=== PATIENT | male | born 1980 | race Caucasian/White ===

== ENCOUNTER 2018-12-03 22:21 | Emergency (ER) | payer MEDICAID, MEDICARE ==
[~2018-12-03] VITALS: Ht 160 cm; Wt 59.1 kg
[~2018-12-03 22:21] MED LIST: BENZ2TAB10 PO; QUET200T PO; RISP2 PO
[2018-12-03 22:25] VITALS: BP 140/85
[2018-12-03 23:09] LABS: AMPHET/METH SCREEN,URINE POSITIVE (NEGATIVE); BARBITURATE SCREEN, URINE NEGATIVE (NEGATIVE); BENZODIAZEPINES SCREEN,URINE NEGATIVE (NEGATIVE); CANNABINOID SCREEN,URINE NEGATIVE (NEGATIVE); COCAINE SCREEN,URINE NEGATIVE (NEGATIVE); METHADONE SCREEN, URINE NEGATIVE (NEGATIVE); OPIATE SCREEN,URINE NEGATIVE (NEGATIVE)
[2018-12-03 23:10] LABS: PHENCYCLIDINE SCREEN,URINE NEGATIVE (NEGATIVE)
== END 2018-12-04 01:13 | disposition left against medical advice (07) ==
LOC: EMS 22:21
DX: R45.851 Suicidal ideations (principal); R21 Rash and other nonspecific skin eruption; F20.9 Schizophrenia, unspecified; F17.210 Nicotine dependence, cigarettes, uncomplicated; F19.90 Other psychoactive substance use, unspecified, uncomplicated; Z53.21 Procedure and treatment not carried out due to patient leaving prior to being seen by health care provider

== ENCOUNTER 2018-12-25 09:31 | Inpatient (IN) | payer MEDICARE ==
[2018-12-25] MEDS ORDERED: LORazepam 2 MG/ML VIAL IM ONE (10:00)
[2018-12-25] MEDS ORDERED: ZOLPIDEM TARTRATE 10 MG TABLET PO PRN (10:00)
[2018-12-25] MEDS ORDERED: HALOPERIDOL 5 MG TABLET PO PRN (10:00)
[2018-12-25] MEDS ORDERED: DiphenhydrAMINE HCL 50 MG/ML VIAL IM ONE (10:00)
[2018-12-25] MEDS ORDERED: HALOPERIDOL LACTATE 5 MG/ML VIAL IM ONE ×2 (10:00→10:15)
[2018-12-25 11:15] VITALS: BP 116/86
[2018-12-25 12:09] LABS: GLUCOMETER DEV NAME(LOC) BV2X.; GLUCOSE,POINT OF CARE 97 MG/DL (70-110)
[2018-12-25] MEDS ORDERED: MAGNESIUM HYDROXIDE SUSPENSION 30 ML UDCUP PO PRN (12:30)
[2018-12-25] MEDS ORDERED: PETROLATUM,WHITE 28 GM JELLY TP PRN (12:30)
[2018-12-25] MEDS ORDERED: IBUPROFEN 400 MG TABLET PO PRN (12:30)
[2018-12-25] MEDS ORDERED: DOCUSATE SODIUM 100 MG CAPSULE PO PRN (12:30)
[2018-12-25] MEDS ORDERED: ACETAMINOPHEN 325 MG TABLET PO PRN (12:30)
[2018-12-25] MEDS ORDERED: LOPERAMIDE HCL 2 MG CAPSULE PO PRN (12:30)
[2018-12-25] MEDS ORDERED: ONDANSETRON HCL 4 MG TABLET PO PRN (12:30)
[2018-12-25] MEDS ORDERED: ALBUTEROL SULFATE HFA 90 MCG/PUFF 8 GM INHALER IH PRN (12:30)
[2018-12-25] MEDS ORDERED: GuaiFENesin/D-METHORPHAN [SUGAR-FREE] 200-20MG/10 ML SYRUP UDCUP PO PRN (12:30)
[2018-12-25] MEDS ORDERED: NICOTINE 14 MG/24 HOUR PATCH TD PRN (12:30)
[2018-12-25] MEDS ORDERED: MAG HYDROX/AL HYDROX/SIMETH ES 30 ML SUSPENSION UDCUP PO PRN (12:30)
[2018-12-26] MEDS: QUEtiapine FUMARATE 200 MG TABLET PO SCH ×2 (10:38→20:19)
[2018-12-27 08:17] VITALS: BP 143/96
[2018-12-27] MEDS: QUEtiapine FUMARATE 200 MG TABLET PO SCH ×2 (08:33→20:20)
[2018-12-27] MEDS: LORazepam 2 MG TABLET PO PRN ×2 (09:10→15:56)
[2018-12-27 18:12] VITALS: BP 151/100
[2018-12-27] MEDS ORDERED: CloNIDine HCL 0.1 MG TABLET PO ONE (18:15)
[2018-12-27 19:00] VITALS: BP 151/100
[2018-12-28 01:27] VITALS: BP 140/78
[2018-12-28] MEDS: QUEtiapine FUMARATE 200 MG TABLET PO SCH ×3 (08:47→20:16)
[2018-12-28 16:00] VITALS: BP 193/108
[2018-12-28] MEDS: CloNIDine HCL 0.1 MG TABLET PO PRN (16:00)
[2018-12-28] MEDS: LORazepam 2 MG TABLET PO PRN (16:16)
[2018-12-28 19:50] VITALS: BP 168/101
[2018-12-28] MEDS ORDERED: AmLODIPine BESYLATE 5 MG TABLET PO ONE (20:30)
[2018-12-29 04:47] VITALS: BP 171/108
[2018-12-29] MEDS: LORazepam 2 MG TABLET PO PRN (04:55)
[2018-12-29] MEDS: CloNIDine HCL 0.1 MG TABLET PO PRN (04:55)
[2018-12-29 07:20] VITALS: BP 119/66
[2018-12-29] MEDS: AmLODIPine BESYLATE 5 MG TABLET PO SCH (09:38)
[2018-12-29] MEDS: QUEtiapine FUMARATE 200 MG TABLET PO SCH ×2 (09:38→20:25)
[2018-12-29 09:51] VITALS: BP 123/82
[2018-12-29 19:48] VITALS: BP 146/87
[2018-12-30 00:18] VITALS: BP 140/89
[2018-12-30 08:12] VITALS: BP 163/99
[2018-12-30] MEDS: QUEtiapine FUMARATE 200 MG TABLET PO SCH ×2 (08:55→20:18)
[2018-12-30] MEDS: AmLODIPine BESYLATE 5 MG TABLET PO SCH (08:55)
[2018-12-30 10:30] VITALS: BP 127/77
[2018-12-30 16:14] VITALS: BP 134/76
[2018-12-31 00:10] VITALS: BP 129/81
[2018-12-31 08:19] VITALS: BP 158/110
[2018-12-31] MEDS: AmLODIPine BESYLATE 5 MG TABLET PO SCH (08:21)
[2018-12-31] MEDS: QUEtiapine FUMARATE 200 MG TABLET PO SCH ×2 (08:21→21:08)
[2018-12-31 10:00] VITALS: BP 123/63
[2018-12-31 16:09] VITALS: BP 136/87
[2019-01-01 07:00] VITALS: BP 140/78
[2019-01-01] MEDS: AmLODIPine BESYLATE 5 MG TABLET PO SCH (08:26)
[2019-01-01] MEDS: QUEtiapine FUMARATE 200 MG TABLET PO SCH ×2 (08:26→21:00)
[2019-01-01 08:59] VITALS: BP 138/90
[2019-01-01 17:34] VITALS: BP 136/78
[2019-01-02 04:57] VITALS: BP 142/96
[2019-01-02 08:12] VITALS: BP 130/64
[2019-01-02] MEDS: QUEtiapine FUMARATE 200 MG TABLET PO SCH ×2 (08:55→20:50)
[2019-01-02] MEDS: AmLODIPine BESYLATE 5 MG TABLET PO SCH (08:55)
[2019-01-03 03:23] VITALS: BP 131/80
[2019-01-03] MEDS: QUEtiapine FUMARATE 200 MG TABLET PO SCH ×2 (08:53→21:14)
[2019-01-03] MEDS: AmLODIPine BESYLATE 5 MG TABLET PO SCH (08:53)
[2019-01-03] MEDS: LORazepam 2 MG TABLET PO PRN (10:14)
[2019-01-04 00:21] VITALS: BP 132/78
[2019-01-04 08:19] VITALS: BP 135/78
[2019-01-04] MEDS: QUEtiapine FUMARATE 200 MG TABLET PO SCH (09:06)
[2019-01-04] MEDS: AmLODIPine BESYLATE 5 MG TABLET PO SCH (09:06)
[2019-01-04 16:13] VITALS: BP 139/95
[2019-01-04] MEDS: QUEtiapine FUMARATE 300 MG TABLET PO SCH (20:20)
[2019-01-05 02:28] VITALS: BP 141/80
[2019-01-05] MEDS: QUEtiapine FUMARATE 300 MG TABLET PO SCH ×2 (10:09→20:31)
[2019-01-05] MEDS: AmLODIPine BESYLATE 5 MG TABLET PO SCH (10:09)
[2019-01-06 01:48] VITALS: BP 136/90
[2019-01-06 08:33] VITALS: BP 131/86
[2019-01-06] MEDS: QUEtiapine FUMARATE 300 MG TABLET PO SCH ×2 (09:24→20:35)
[2019-01-06] MEDS: AmLODIPine BESYLATE 5 MG TABLET PO SCH (09:24)
[2019-01-06 16:36] VITALS: BP 115/73
[2019-01-07 04:46] VITALS: BP 120/81
[2019-01-07] MEDS ORDERED: AMLO-511 PO (08:12)
[2019-01-07] MEDS ORDERED: QUET300T2 PO (08:12)
[2019-01-07] MEDS: QUEtiapine FUMARATE 300 MG TABLET PO SCH (09:24)
[2019-01-07] MEDS: AmLODIPine BESYLATE 5 MG TABLET PO SCH (09:24)
== END 2019-01-07 13:25 | disposition home or self-care (01) | DRG 885 ==
LOC: B2X 09:53
PROVIDERS: ADMIT Psychiatry & Neurology Psychiatry; ATTEND Psychiatry & Neurology Psychiatry
DX: F20.0 Paranoid schizophrenia (principal); F15.20 Other stimulant dependence, uncomplicated; G44.209 Tension-type headache, unspecified, not intractable; I10 Essential (primary) hypertension; K21.9 Gastro-esophageal reflux disease without esophagitis; F10.20 Alcohol dependence, uncomplicated; K59.00 Constipation, unspecified; Z79.899 Other long term (current) drug therapy; Z91.5 Personal history of self-harm

== ENCOUNTER 2020-09-10 06:19 | Emergency (ER) | payer MEDICARE, OTHER ==
[~2020-09-10] VITALS: Ht 157.5 cm; Wt 68.2 kg
[~2020-09-10 06:19] MED LIST changes: +AMLO-257 PO; -BENZ2TAB10 PO; -QUET200T PO; +QUET300T2 PO; -RISP2 PO
[2020-09-10] MEDS ORDERED: QUET25TA PO (06:35)
[2020-09-10] MEDS ORDERED: LISI-893 PO (06:35)
[2020-09-10 06:46] VITALS: BP 167/102
== END 2020-09-10 08:40 | disposition home or self-care (01) ==
LOC: EMS 06:26
DX: F20.0 Paranoid schizophrenia (principal); F15.10 Other stimulant abuse, uncomplicated; I10 Essential (primary) hypertension; F17.210 Nicotine dependence, cigarettes, uncomplicated; Z79.899 Other long term (current) drug therapy
CPT/HCPCS: 99284; Z7502